=== PATIENT | male | born 1975 ===

== ENCOUNTER 2016-09-28 17:50 | Emergency (ER) | payer MEDICAID, OTHER ==
[2016-09-28 17:55] VITALS: BP 146/110; PULSE 74; RESP 20; TEMP 97.7; O2SAT 98
[2016-09-28] MEDS ORDERED: Sodium Chloride 0.9% 1,000 ML IV STA (18:20)
--- NOTE | 2016-09-28 18:26 | ED PDOC ---
HPI: General Adult Time Seen by Provider: 09/28/16 18:04 Chief Complaint (Nursing): Seizure Chief Complaint (Provider): Seizure History Per: Patient History/Exam Limitations: no limitations Onset/Duration Of Symptoms: Days (today) Additional Complaint(s): Pt. states he may of had a seizure since he bit his tongue so he called EMS to bring him to the hospital. Pt. states he has no headache, dizziness, weakness, numbness, tingles, chest pain, dyspnea, fever, cough, abd pain, nausea, vomit, diarrhea. Takes Keppra 500mg bid. States he forgets sometimes. No drugs or etoh. No cough. Sees Dr. Barrett for known seizures. Takes ativan as needed for anxiety. Lives alone and no seizure witnessed. Past Medical History Reviewed: Nursing Documentation, Vital Signs Vital Signs: Last Vital Signs Temp 97.7 F 09/28/16 17:52 Pulse 74 09/28/16 17:52 Resp 20 09/28/16 17:52 BP 146/110 H 09/28/16 17:52 Pulse Ox 98 09/28/16 18:26 - Medical History PMH: Anxiety, Depression, Seizures Denies: Diabetes, Hepatitis, HIV, HTN, Sexually Transmitted Disease - Surgical History Surgical History: No Surg Hx - Family History Family History: States: Unknown Family Hx - Living Arrangements Living Arrangements: Alone - Social History Current smoker - smoking cessation education provided: No Alcohol: None Drugs: Denies - Home Medications Home Medications: Ambulatory Orders Medication Instructions Recorded levETIRAcetam [Keppra] 500 mg PO BID 09/28/16 - Allergies Allergies/Adverse Reactions: Allergies Allergy/AdvReac Type Severity Reaction Status Date / Time No Known Allergies Allergy Verified 09/28/16 17:52 Review of Systems ROS Statement: Except As Marked, All Systems Reviewed And Found Negative Neurological: Positive for: Seizures Physical Exam - Reviewed Nursing Documentation Reviewed: Yes Vital Signs Reviewed: Yes - Physical Exam Appears: Positive for: Non-toxic, No Acute Distress Head Exam: Positive for: ATRAUMATIC, NORMAL INSPECTION, NORMOCEPHALIC Skin: Positive for: Normal Color, Warm, DRY Eye Exam: Positive for: EOMI, Normal appearance, PERRL ENT: Positive for: Normal ENT Inspection Neck: Positive for: Normal, Painless ROM Cardiovascular/Chest: Positive for: Regular Rate, Rhythm Respiratory: Positive for: CNT, Normal Breath Sounds Gastrointestinal/Abdominal: Positive for: Normal Exam, Bowel Sounds, Soft. Negative for: Tenderness Back: Positive for: Normal Inspection. Negative for: L CVA Tenderness, R CVA Tenderness Extremity: Positive for: Normal ROM. Negative for: Tenderness, Pedal Edema Neurologic/Psych: Positive for: Alert, head of conservation II-XII, Oriented. Negative for: Motor/Sensory Deficits, Aphasia, Facial Droop - Laboratory Results Result Diagrams: 09/28/16 18:31 09/28/16 18:31 Interpretation Of Abn Labs: no acute - ECG ECG: Positive for: Interpreted By Me, Viewed By Me ECG Rhythm: Positive for: Normal QRS, Normal ST Segment, Sinus Rhythm O2 Sat by Pulse Oximetry: 98 Pulse Ox Interpretation: Normal - CT Scan/US ct Other Rad Studies (CT/US): Read By Radiologist Other Rad Interpretation: no acute - Progress ED Course And Treament: 2027: Stable. AAOx3. Pain free. Will give tonight dose of keppra 500mg and 1 extra 500mg. Pt. to continue meds as scheduled tomorrow. See Dr. Barrett in 2- 3 days. Tolerated PO. Ambulated with no issues. Disposition - Clinical Impression Clinical Impression: Seizure disorder - Patient ED Disposition Is Patient to be Admitted: No Counseled Patient/Family Regarding: Studies Performed, Diagnosis, Need For Followup - Disposition Referrals: Ella Barrett MD [Family Provider] - 09/30/16 Disposition: Routine/Home Disposition Time: 20:30 Condition: STABLE Additional Instructions: Return if not better in 3 days. Instructions: Epilepsy (ED) Forms: [employer] (Sri Lankan) Print Language: LAO
[2016-09-28 18:34] LABS: BASO # 0.1 K/uL (0.0-0.2); BASO % 1.2 % (0.0-2.0); EOS # 0.4 K/uL (0.0-0.7); EOS % 4.5 % (0.0-4.0); HEMOGLOBIN 16.5 g/dL (12.0-18.0); LYMPH # 3.2 K/uL (1.0-4.3); LYMPH % 35.3 % (20.0-40.0); MEAN CORPUSCULAR HGB CONC 34.4 g/dL (33.0-37.0); MEAN PLATELET VOLUME 10.1 fl (7.2-11.7); MONO # 0.6 K/uL (0.0-0.8); MONO % 6.8 % (0.0-10.0); NEUT # 4.7 K/uL (1.8-7.0); NEUT % 52.2 % (50.0-75.0); RBC 5.31 Mil/uL (4.40-5.90); RED CELL DISTRIBUTION WIDTH 13.1 % (11.5-14.5); WHITE BLOOD COUNT 8.9 K/uL (4.8-10.8)
[2016-09-28 18:46] LABS: ALB/GLOB RATIO 1.8 (1.0-2.1); ALBUMIN 5.1 g/dL (3.5-5.0); ALT/SGPT 44 U/L (21-72); AST/SGOT 29 U/L (17-59); BLOOD UREA NITROGEN 13 mg/dl (9-20); CALCIUM 9.8 mg/dL (8.4-10.2); GFR AFRICAN-AMERICAN > 60; GFR NON-AFRICAN AMERICAN > 60
--- NOTE | 2016-09-28 20:00 | CT ---
PROCEDURE: CT HEAD WITHOUT CONTRAST. HISTORY: headache COMPARISON: None available. TECHNIQUE: Axial computed tomography images were obtained through the head/brain without intravenous contrast. Radiation dose: Total exam DLP = 04/08/2003 mGy-cm. This CT exam was performed using one or more of the following dose reduction techniques: Automated exposure control, adjustment of the mA and/or kV according to patient size, and/or use of iterative reconstruction technique. FINDINGS: HEMORRHAGE: No intracranial hemorrhage. BRAIN: No mass effect or edema. Bifrontal encephalomalacia. VENTRICLES: Unremarkable. No hydrocephalus. CALVARIUM: Status post surgical defects in the frontal bones bilaterally as well as a defect in the floor of the right frontal fossa.. PARANASAL SINUSES: Unremarkable as visualized. No significant inflammatory changes. MASTOID AIR CELLS: Unremarkable as visualized. No inflammatory changes. OTHER FINDINGS: None. 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
--- NOTE | 2016-09-29 09:43 | CARD ---
APPROVED REPORT EKG Measurement Heart [id number] <Conclusion> Sinus bradycardia ST elevation, probably due to early repolarization Borderline ECG
== END 2016-09-28 21:09 | disposition home or self-care (01) ==
LOC: H.ER 17:50
DX: G40.909 Epilepsy, unspecified, not intractable, without status epilepticus (principal)

== ENCOUNTER 2017-04-13 12:37 | Emergency (ER) | payer OTHER ==
[2017-04-13 12:45] VITALS: BP 141/82; PULSE 72; RESP 18; TEMP 98; O2SAT 98
[2017-04-13] MEDS ORDERED: Iohexol 240 (50 ml) PO ONE (13:22)
[2017-04-13] MEDS ORDERED: Iohexol 240 (50 ml) ONE (13:35)
[2017-04-13 14:00] LABS: BASO % 0.5 % (0.0-2.0); EOS # 0.3 K/uL (0.0-0.7); EOS % 3.9 % (0.0-4.0); HEMOGLOBIN 15.6 g/dL (12.0-18.0); LYMPH # 2.2 K/uL (1.0-4.3); LYMPH % 31.5 % (20.0-40.0); MEAN CELL VOLUME 89.5 fl (80.0-94.0); MEAN CORPUSCULAR HEMOGLOBIN 30.8 pg (27.0-31.0); MEAN CORPUSCULAR HGB CONC 34.5 g/dL (33.0-37.0); MEAN PLATELET VOLUME 10.3 fl (7.2-11.7); MONO # 0.6 K/uL (0.0-0.8); MONO % 8.6 % (0.0-10.0); NEUT # 3.9 K/uL (1.8-7.0); NEUT % 55.5 % (50.0-75.0); NRBC % 0.1 % (0.0-0.0); RBC 5.05 Mil/uL (4.40-5.90); RED CELL DISTRIBUTION WIDTH 12.8 % (11.5-14.5)
[2017-04-13 14:08] LABS: BLOOD UREA NITROGEN 14 mg/dl (9-20); CALCIUM 9.6 mg/dL (8.4-10.2); GFR AFRICAN-AMERICAN > 60; GFR NON-AFRICAN AMERICAN > 60
--- NOTE | 2017-04-13 14:08 | ED PDOC ---
HPI: Abdomen Time Seen by Provider: 04/13/17 12:48 Chief Complaint (Nursing): Male Genitourinary Chief Complaint (Provider): Abdominal Pain History Per: Patient History/Exam Limitations: no limitations Onset/Duration Of Symptoms: Days (x7) Current Symptoms Are (Timing): Still Present Additional Complaint(s): Mauricio Talley is a 41 year old male with a history of seizures that presents to the ED with a chief complaint of suprapubic pain that he has been experiencing for the past week. Patient reports that the pain is mostly present when he is moving, or when he is touching the area. He states that it is associated with mild watery, nonbloody diarrhea, and once had chills, but denies any nausea, vomiting, urinary symptoms, testicular pain, or fever. PMD: None Past Medical History Reviewed: Historical Data, Nursing Documentation, Vital Signs Vital Signs: Last Vital Signs Temp 98 F 04/13/17 12:42 Pulse 72 04/13/17 12:42 Resp 18 04/13/17 12:42 BP 141/82 04/13/17 12:42 Pulse Ox 98 04/13/17 16:54 - Medical History PMH: Anxiety, Depression, Seizures Denies: Diabetes, Hepatitis, HIV, HTN, Sexually Transmitted Disease - Surgical History Other surgeries: Patient reports multiple craniotomies and abdominal surgeries s /p an accident many years ago. - Family History Family History: States: Unknown Family Hx - Home Medications Home Medications: Ambulatory Orders Medication Instructions Recorded levETIRAcetam [Keppra] 500 mg PO BID 09/28/16 Ciprofloxacin HCl [Cipro] 500 mg PO BID 7 Days tab 04/13/17 Metronidazole [Flagyl] 500 mg PO TID 7 Days tablet 04/13/17 - Allergies Allergies/Adverse Reactions: Allergies Allergy/AdvReac Type Severity Reaction Status Date / Time No Known Allergies Allergy Verified 04/13/17 12:41 Review of Systems ROS Statement: Except As Marked, All Systems Reviewed And Found Negative Constitutional: Positive for: Chills. Negative for: Fever Gastrointestinal: Positive for: Abdominal Pain (suprapubic), Diarrhea (mild, watery, nonbloody). Negative for: Nausea, Vomiting Genitourinary Male: Negative for: Dysuria, Frequency, Incontinence, Hematuria Physical Exam - Reviewed Nursing Documentation Reviewed: Yes Vital Signs Reviewed: Yes - Physical Exam Appears: Positive for: Non-toxic, No Acute Distress Head Exam: Positive for: ATRAUMATIC, NORMOCEPHALIC Skin: Positive for: Normal Color, Warm Eye Exam: Positive for: Normal appearance, EOMI, PERRL Neck: Positive for: Normal, Painless ROM, Supple Cardiovascular/Chest: Positive for: Regular Rate, Rhythm. Negative for: Murmur Respiratory: Positive for: Normal Breath Sounds. Negative for: Wheezing, Respiratory Distress Gastrointestinal/Abdominal: Positive for: Tenderness ((+) tenderness to palpation suprapubic area). 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 Negative for: erythema, inguinal tenderness, scrotum tenderness (R), scrotum tenderness (L), testicular tenderness (R), testicular tenderness (L) Back: Positive for: Normal Inspection. Negative for: L CVA Tenderness, R CVA Tenderness Extremity: Positive for: Normal ROM. Negative for: Deformity, Swelling Neurologic/Psych: Positive for: Alert, Oriented. Negative for: Motor/Sensory Deficits - Laboratory Results Result Diagrams: 04/13/17 13:44 04/13/17 13:44 - ECG O2 Sat by Pulse Oximetry: 98 (RA) Pulse Ox Interpretation: Normal Medical Decision Making Medical Decision Making: Impression: Suprapubic Abdominal Pain, ddx include but not limited to UTI vs. Colitis vs. Diverticulitis vs. Appendicitis Plan: * CT Abd/Pelvis with PO and IV Contrast * BMP * Urine Dip * Iohexol 50 mg PO * Reevaluation 15:35 Patient signed out to Dr. Kendrick pending CT scan. Scribe Attestation: Documented by Tennille Luo, acting as a scribe for Leatha Alexandra MD. Provider Scribe Attestation: All medical record entries made by the Scribe were at my direction and personally dictated by me. I have reviewed the chart and agree that the record accurately reflects my personal performance of the history, physical exam, medical decision making, and the department course for this patient. I have also personally directed, reviewed, and agree with the discharge instructions and disposition. Disposition - Clinical Impression Clinical Impression: Colitis, Abdominal pain - Patient ED Disposition Is Patient to be Admitted: Transfer of Care Counseled Patient/Family Regarding: Studies Performed, Diagnosis - Disposition Referrals: [facility] [Outside] - 04/14/17 Kirit Fernando MD [Staff Provider] - 04/14/17 Disposition: Transfer of Care Disposition Time: 15:35 Condition: FAIR Additional Instructions: Return if not better in 3 days. Prescriptions: Ciprofloxacin HCl [Cipro] 500 mg PO BID 7 Days tab Metronidazole [Flagyl] 500 mg PO TID 7 Days tablet Instructions: Inflammatory Bowel Disease (DC) Forms: [facility] ED School/Work Excuse Patient Signed Over To: Sony Kendrick
[2017-04-13] MEDS ORDERED: Hydrocortisone 2.5% (Rectal) CREAM PR STA (15:00)
[2017-04-13] MEDS ORDERED: Iohexol 300 100 ML IJ ONE (15:08)
[2017-04-13] MEDS ORDERED: Sodium Chloride 0.9% 100 ML ONE (15:08)
--- NOTE | 2017-04-13 15:39 | ED PDOC ---
- Laboratory Results Result Diagrams: 04/13/17 13:44 04/13/17 13:44 Interpretation Of Abn Labs: no acute - ECG O2 Sat by Pulse Oximetry: 98 (RA) Pulse Ox Interpretation: Normal - CT Scan/US ct Other Rad Studies (CT/US): Read By Radiologist Other Rad Interpretation: colitis - Progress ED Course And Treament: 1650: Stable. Colitis. Will rx antibiotics and fu with gi. AAOx3. Tolerated Po. Medical Decision Making Medical Decision Makin:35 Patient signed out to me by Dr. Alexandra pending CT Scan. Scribe Attestation: Documented by Tennille Luo, acting as a scribe for Sony Kendrick MD. Provider Scribe Attestation: All medical record entries made by the Scribe were at my direction and personally dictated by me. I have reviewed the chart and agree that the record accurately reflects my personal performance of the history, physical exam, medical decision making, and the department course for this patient. I have also personally directed, reviewed, and agree with the discharge instructions and disposition. Disposition Counseled Patient/Family Regarding: Studies Performed, Diagnosis, Need For Followup, Rx Given - Clinical Impression Clinical Impression: Colitis - POA Present On Arrival: None - Disposition Referrals: Kirit Fernando MD [Staff Provider] - 04/14/17 [facility] [Outside] - 04/14/17 Disposition: Routine/Home Disposition Time: 16:52 Condition: FAIR Additional Instructions: Return if not better in 3 days. Prescriptions: Ciprofloxacin HCl [Cipro] 500 mg PO BID 7 Days tab Metronidazole [Flagyl] 500 mg PO TID 7 Days tablet Instructions: Inflammatory Bowel Disease (DC) Forms: [employer] (Slovak), [facility] ED School/Work Excuse
--- NOTE | 2017-04-13 15:57 | CT ---
PROCEDURE: CT Abdomen and Pelvis with contrast HISTORY: lower abdominal pain COMPARISON: None. TECHNIQUE: Following oral and intravenous contrast administration, a CT examination of the abdomen and pelvis performed from the domes of the diaphragms to the symphysis pubis with reformatted datasets provided not only axial but also sagittal and coronal series. Contrast dose: Omnipaque 300, 99 cc Radiation dose: Total exam DLP = 385.36 mGy-cm. This CT exam was performed using one or more of the following dose reduction techniques: Automated exposure control, adjustment of the mA and/or kV according to patient size, and/or use of iterative reconstruction technique. FINDINGS: LOWER THORAX: Unremarkable. LIVER: Diminished attenuation throughout the liver indicates diffuse fatty infiltration. No discrete mass or definite intrahepatic biliary duct dilatation is identified. GALLBLADDER AND BILE DUCTS: Unremarkable. PANCREAS: Unremarkable. No gross lesion or ductal dilatation. SPLEEN: Unremarkable. ADRENALS: Unremarkable. No mass. KIDNEYS AND URETERS: Unremarkable. No hydronephrosis. No solid mass. VASCULATURE: Unremarkable. No aortic aneurysm. BOWEL: The stomach is decompressed as well as much of the small bowel. The distal large bowel is decompressed limiting evaluation of wall thickness. No definite diverticular changes are identified. Limited mural thickening of the sigmoid segment is difficult to completely exclude although there is no pericolic reaction or local fluid collection. No bowel obstruction is identified. APPENDIX: Normal appendix. PERITONEUM: Unremarkable. No free fluid. No free air. LYMPH NODES: Unremarkable. No enlarged lymph nodes. BLADDER: Unremarkable. REPRODUCTIVE: Prominence of the prostate gland is noted. BONES: No acute fracture. OTHER FINDINGS: None. IMPRESSION: 1. The sigmoid colon is decompressed. This limits evaluation of the green despite oral contrast administration. It is difficult to the exclude an element of segmental colitis affecting the sigmoid colon though no colonic diverticular changes are associated. Clinically correlate further. No local fluid collection or mesenteric reaction. 2. Hepatic steatosis.
== END 2017-04-13 17:21 | disposition home or self-care (01) ==
LOC: H.ER 12:37
DX: K52.9 Noninfective gastroenteritis and colitis, unspecified (principal); F32.9 Major depressive disorder, single episode, unspecified; F41.9 Anxiety disorder, unspecified
CPT/HCPCS: 74177; 80048; 85025; 99283; Q9966; Q9967